=== PATIENT | male | born 1995 | race Two or more races ===

== ENCOUNTER 2016-09-05 14:15 | Emergency (ER) | payer OTHER ==
[2016-09-05 14:32] VITALS: BP 132/76
--- NOTE | 2016-09-06 07:00 | ER ---
DATE SEEN: 09/05/2016 TIME SEEN: The patient was seen at 1430 hours. CHIEF COMPLAINT: Right testicle lump that is painful. HISTORY OF PRESENT ILLNESS: This 21-year-old single fellow comes in with history of onset yesterday, 09/04, of severe right testicle lump pain. He woke with pain that was worse this morning. It got progressively worse. PAST MEDICAL HISTORY:He has significant depression. No diabetes, heart disease , high blood pressure, or serious illness. ALLERGIES: No allergies. MEDICATIONS: No medications currently. PAST SURGICAL HISTORY: None. FAMILY HISTORY: Unknown. He does not want talk about his mother and father. They are and he has not seen either for some time. SOCIAL HISTORY: The patient is a nonsmoker. Works at [employer] and has been off for a week because he has been so tired. REVIEW OF SYSTEMS: Negative, except for he has been depressed and he is chronically depressed. He has euthymia throughout the year. He has difficulty sleeping. He says he feels helpless and hopeless. Does not feel guilty. He has decreased energy. Concentration is okay. He has anxiety and appetite is good. Psychomotor behavior not decreased or increased and he is not suicidal. Remainder of review of systems is negative. PHYSICAL EXAMINATION: VITAL SIGNS: Blood pressure 132/76, heart rate 79, respirations 18, oxygen saturation 100%, temperature 37.3 degrees centigrade. GENERAL: The patient is a tall lanky . HEENT: PERRLA intact. Pharynx without abnormality. NECK: No cervical adenopathy. No thyromegaly or masses in the neck. LUNGS: Clear to auscultation without rales, rhonchi, or wheezes. HEART: S1, S2. No irregular rate and rhythm. No murmur. ABDOMEN: Soft, minimal suprapubic discomfort. No guarding or rebound. No distention. : Rectal exam, not performed. Examination of right testicle is slightly larger than the left. There is minimal discomfort in the testis, but there is an inferior anterior excrescence (epididymis) that is tender, and with gentle rolling of that under my finger caused him increased pain. The vas is nontender. He is circumcised and bilaterally descended testicles. Inguinal area is nontender and just minimal discomfort to right testicle. ASSESSMENT: 1. Right epididymitis. 2. Trace orchitis. 3. Doubt torsed testicle. I discussed the patient's status, and he did not want any studies done nor did he even want to get a urine. After I had placed order he came to the desk and said he wanted to leave. "I need to just go home and get some sleep." At this point, I have encouraged him to at least start an antibiotic to decrease his pain and treet a possible epididymitis. I did not prescribe pain medicine, as he did not want any pain medicine prescribed. PLAN: Use Cipro 500 mg b.i.d. 20 tablets,F/U in 7-10 days, earlier if worse. If he has fever, marked pain in the scrotum and the testicle, see a doctor earlier. DIAGNOSES: 1. Epididymitis. 2. Depression without suicidality. He has chronic long-term depression with dysthymia, has been having difficulty sleeping for the last 2 days, and he relates he is not going to work for the past week at [employer] due to his depression and tiredness. I encouraged him to see a doctor and follow up and have treatment for his depression. At this point, he is somewhat in denial and would prefer to simply just get his medicine antibiotic, and go home and sleep. /[id number] LETHA/MICHAEL COWAN
== END 2016-09-05 15:33 | disposition home or self-care (01) ==
LOC: FB.ED 14:15
DX: N45.3 Epididymo-orchitis (principal); F32.9 Major depressive disorder, single episode, unspecified
CPT/HCPCS: 99281

== ENCOUNTER 2016-09-15 14:12 | Emergency (ER) | payer OTHER ==
[2016-09-15] MEDS ORDERED: Ondansetron 4 MG/2 ML SDV IVPUSH ONE (14:31)
[2016-09-15] MEDS ORDERED: Sodium Chloride 0.9% 1,000 ML IV ONE ×2 (14:31→15:44)
--- NOTE | 2016-09-15 15:05 | EDM.PDOC ---
ED HPI ENT - General Chief Complaint: Fever Stated Complaint: SORE THROAT FEVER Time Seen by Provider: 09/15/16 14:17 Source: Reports: Patient, Family History Limitations: Reports: Intoxication - History of Present Illness INITIAL COMMENTS - FREE TEXT/NARRATIVE: 21 years old w m -smoker-came to the ed due to N/V, dizzy, lightheaded and sore throat. Pt was seen a few days ago in this ed when he waked out refusing a drug screen. Pt denies trauma. He smokes marijuana, however. Symptom Onset Date: 09/12/16 Symptom Onset Time: 09:00 Timing/Duration: Reports: Day(s): Severity: moderate Quality: Reports: Burning Improves with: Reports: None Worsens with: Reports: Eating Associated symptoms: Reports: weakness, cough, malaise - Related Data Allergies/ADRs: Allergies Allergy/AdvReac Type Severity Reaction Status Date / Time No Known Allergies Allergy Verified 09/15/16 14:24 Home Meds: Home Meds Ciprofloxacin HCl [Cipro] 500 mg PO BID #20 tablet 09/05/16 [Rx] Amoxicillin [IJD: Amoxicillin] 500 mg PO .THREE TIMES DAILY #30 cap 09/15/16 [Rx ] Famotidine [Pepcid] 20 mg PO BID #20 tablet 09/15/16 [Rx] Past Medical History Respiratory History: Reports: Asthma Musculoskeletal History: Reports: Fracture Other Musculoskeletal History: L elbow fx, R ankle fx Psychiatric History: Reports: Anxiety - Past Surgical History Musculoskeletal Surgical History: Reports: Other (see below) Other Musculoskeletal Surgeries/Procedures:: L elbow fx repair, R ankle repair Social & Family History - Tobacco Use Smoking Status *Q: Current Every Day Smoker Years of Tobacco use: 2 Packs/Tins Daily: 0.2 - Caffeine Use Caffeine Use: Reports: None - Recreational Drug Use Recreational Drug Use: Yes Drug Use in Last 12 Months: Yes Recreational Drug Type: Reports: Marijuana/Hashish Recreational Drug Use Frequency: Daily Recreational Drug Last Use: 09/15/16 ED ROS ENT - Review of Systems Review Of Systems: See Below Constitutional: Reports: no symptoms, weakness, fatigue HEENT: Reports: Throat pain Respiratory: Reports: Cough, Sputum Cardiovascular: Reports: No symptoms Endocrine: Reports: no symptoms GI/Abdominal: Reports: No symptoms : Reports: no symptoms Musculoskeletal: Reports: muscle pain Skin: Reports: no symptoms Neurological: Reports: No Symptoms Psychiatric: Reports: Anxiety Hematologic/Lymphatic: Reports: no symptoms Immunologic: Reports: no symptoms ED EXAM, ENT - Physical Exam Exam: See Below Exam Limited By: Other (appears high on drugs, weak.) General Appearance: alert, WD/WN, anxious, mild distress Eye Exam: bilateral eye: normal inspection Ears: normal external exam, normal canal, hearing grossly normal Nose: normal inspection, normal mucousa, no blood Mouth/Throat: Dry mucous membrane, Gum swelling, Pharyngeal erythema, Tonsillar erythema, Tonsillar exudates Head: atraumatic, normocephalic Neck: normal inspection, supple, non-tender Respiratory/Chest: no respiratory distress, rhonchi Cardiovascular: normal peripheral pulses, regular rate, rhythm, no edema GI/Abdominal: tender (RUQ) (Male) Exam: No hernia, Normal inspection Rectal (Males) Exam: Deferred Back: normal inspection, full range of motion Extremities: normal inspection, normal range of motion, non-tender, no pedal edema Neurological: alert, oriented, CN II-XII intact, normal cognition Psychiatric: anxious Skin: Warm, Dry, Intact, Normal color Lymphatic: no adenopathy Course - Vital Signs Text/Narrative:: 21 years old w m came to the ed due to N/V, dizzy, lightheaded and sore throat. Pt was seen a few days ago in this ed when he waked out refusing a drug screen. Pt denies trauma. He smokes marijuana, however. PE: Well nourished black male. Epigastric tenderness, Pharyngeal erythema, dry mucosal membrane. decr. skin turgor Labs: Na 129, UDS pos for Amphetamine and Marijuana, WBC 24K (poss from vomiting , drugs) Impression: Hyponatremia, UDS pos, Dehydration, gastritis, pharyngitis. Bronchitis Tx: NS, pepcid, Zofran, reexam: Improved Plan: D/C with instructions Last Recorded V/S: Last Vital Signs Temp 39.2 C H 09/15/16 15:14 Pulse 119 H 09/15/16 14:17 Resp 16 09/15/16 14:17 BP 122/78 09/15/16 15:14 Pulse Ox 97 09/15/16 14:17 - Orders/Labs/Meds Orders: Active Orders 24 hr Category Date Time Status Sodium Chloride 0.9% [Normal Saline] 1,000 ml Med 09/15/16 15:44 Active IV .BOLUS Medication Orders Sodium Chloride (Normal Saline) 1,000 mls @ 999 drops/hr IV .BOLUS ONE Stop: 09/16/16 06:44 Last Admin: 09/15/16 15:48 Dose: 999 drops/hr Labs: Laboratory Tests 09/15/16 09/15/16 09/15/16 Range/Units 14:45 14:45 14:45 WBC 24.0 H (4.5-12.0) X10-3/uL RBC 5.07 (4.30-5.75) x10(6)uL Hgb 15.3 (11.5-15.5) g/dL Hct 44.2 (30.0-51.3) % MCV 87.2 (80-96) fL MCH 30.2 (27.7-33.6) pg MCHC 34.7 (32.2-35.4) g/dL RDW 11.5 (11.5-15.5) % Plt Count 240 (125-369) X10(3)uL MPV 7.5 (7.4-10.4) fL Add Manual Diff Yes Neutrophils % (Manual) 96 H (46-82) % Band Neutrophils % 1 (0-6) % Lymphocytes % (Manual) 2 L (13-37) % Monocytes % (Manual) 1 L (4-12) % PT 12.6 H (8.7-11.1) INR 1.24 H (0.89-1.13) Sodium 129 L (135-145) mmol/L Potassium 3.8 (3.5-5.3) mmol/L Chloride 97 L (100-110) mmol/L Carbon Dioxide 26 (23-29) mmol/L BUN 13 (5-20) mg/dL Creatinine 0.9 (0.6-1.3) mg/dL Est Cr Clr Drug Dosing 152.22 mL/min Estimated GFR (MDRD) > 60 (>60) BUN/Creatinine Ratio 14.4 (9-20) Glucose 116 (80-116) mg/dL Lactic Acid (0.5-2.2) mmol/L Calcium 9.1 (8.6-10.2) mg/dL Total Bilirubin 1.3 (0.1-1.3) mg/dL Direct Bilirubin 0.2 (0.1-0.2) mg/dL AST 25 (5-27) IU/L ALT 55 H (14-26) IU/L Alkaline Phosphatase 53 L (56-112) IU/L Total Protein 7.9 (6.0-8.0) g/dL Albumin 4.2 (3.5-5.2) g/dL Amylase (28-100) U/L Urine Color (YELLOW) Urine Appearance (CLEAR) Urine pH (5.0-6.5) Ur Specific [place] (1.010-1.025) Urine Protein (NEGATIVE) mg/dL Urine Glucose (UA) (NEGATIVE) mg/dL Urine Ketones (NEGATIVE) mg/dL Urine Occult Blood (NEGATIVE) Urine Nitrite (NEGATIVE) Urine Bilirubin (NEGATIVE) Urine Urobilinogen (NEGATIVE) mg/dL Ur Leukocyte Esterase (NEGATIVE) Urine RBC (0) Urine WBC (0) Ur Squamous Epith Cells (NS,R,O) Urine Bacteria (NS) Urine Mucus (NS) Urine Opiates Screen (NEGATIVE) Ur Oxycodone Screen (NEGATIVE) Ur Propoxyphene Screen (NEGATIVE) Ur Barbituates Screen (NEGATIVE) Ur Tricyclics Screen (NEGATIVE) Ur Phencyclidine Scrn (NEGATIVE) Ur Amphetamine Screen (NEGATIVE) Urine MDMA Screen (NEGATIVE) U Benzodiazepines Scrn (NEGATIVE) U Cocaine Metab Screen (NEGATIVE) U Marijuana (THC) Screen (NEGATIVE) Ethyl Alcohol (<0.01) % 09/15/16 09/15/16 09/15/16 Range/Units 14:45 14:45 14:45 WBC (4.5-12.0) X10-3/uL RBC (4.30-5.75) x10(6)uL Hgb (11.5-15.5) g/dL Hct (30.0-51.3) % MCV (80-96) fL MCH (27.7-33.6) pg MCHC (32.2-35.4) g/dL RDW (11.5-15.5) % Plt Count (125-369) X10(3)uL MPV (7.4-10.4) fL Add Manual Diff Neutrophils % (Manual) (46-82) % Band Neutrophils % (0-6) % Lymphocytes % (Manual) (13-37) % Monocytes % (Manual) (4-12) % PT (8.7-11.1) INR (0.89-1.13) Sodium (135-145) mmol/L Potassium (3.5-5.3) mmol/L Chloride (100-110) mmol/L Carbon Dioxide (23-29) mmol/L BUN (5-20) mg/dL Creatinine (0.6-1.3) mg/dL Est Cr Clr Drug Dosing mL/min Estimated GFR (MDRD) (>60) BUN/Creatinine Ratio (9-20) Glucose (80-116) mg/dL Lactic Acid 1.1 (0.5-2.2) mmol/L Calcium (8.6-10.2) mg/dL Total Bilirubin (0.1-1.3) mg/dL Direct Bilirubin (0.1-0.2) mg/dL AST (5-27) IU/L ALT (14-26) IU/L Alkaline Phosphatase (56-112) IU/L Total Protein (6.0-8.0) g/dL Albumin (3.5-5.2) g/dL Amylase 39 (28-100) U/L Urine Color (YELLOW) Urine Appearance (CLEAR) Urine pH (5.0-6.5) Ur Specific [place] (1.010-1.025) Urine Protein (NEGATIVE) mg/dL Urine Glucose (UA) (NEGATIVE) mg/dL Urine Ketones (NEGATIVE) mg/dL Urine Occult Blood (NEGATIVE) Urine Nitrite (NEGATIVE) Urine Bilirubin (NEGATIVE) Urine Urobilinogen (NEGATIVE) mg/dL Ur Leukocyte Esterase (NEGATIVE) Urine RBC (0) Urine WBC (0) Ur Squamous Epith Cells (NS,R,O) Urine Bacteria (NS) Urine Mucus (NS) Urine Opiates Screen (NEGATIVE) Ur Oxycodone Screen (NEGATIVE) Ur Propoxyphene Screen (NEGATIVE) Ur Barbituates Screen (NEGATIVE) Ur Tricyclics Screen (NEGATIVE) Ur Phencyclidine Scrn (NEGATIVE) Ur Amphetamine Screen (NEGATIVE) Urine MDMA Screen (NEGATIVE) U Benzodiazepines Scrn (NEGATIVE) U Cocaine Metab Screen (NEGATIVE) U Marijuana (THC) Screen (NEGATIVE) Ethyl Alcohol < 0.01 (<0.01) % 09/15/16 09/15/16 Range/Units 16:23 16:23 WBC (4.5-12.0) X10-3/uL RBC (4.30-5.75) x10(6)uL Hgb (11.5-15.5) g/dL Hct (30.0-51.3) % MCV (80-96) fL MCH (27.7-33.6) pg MCHC (32.2-35.4) g/dL RDW (11.5-15.5) % Plt Count (125-369) X10(3)uL MPV (7.4-10.4) fL Add Manual Diff Neutrophils % (Manual) (46-82) % Band Neutrophils % (0-6) % Lymphocytes % (Manual) (13-37) % Monocytes % (Manual) (4-12) % PT (8.7-11.1) INR (0.89-1.13) Sodium (135-145) mmol/L Potassium (3.5-5.3) mmol/L Chloride (100-110) mmol/L Carbon Dioxide (23-29) mmol/L BUN (5-20) mg/dL Creatinine (0.6-1.3) mg/dL Est Cr Clr Drug Dosing mL/min Estimated GFR (MDRD) (>60) BUN/Creatinine Ratio (9-20) Glucose (80-116) mg/dL Lactic Acid (0.5-2.2) mmol/L Calcium (8.6-10.2) mg/dL Total Bilirubin (0.1-1.3) mg/dL Direct Bilirubin (0.1-0.2) mg/dL AST (5-27) IU/L ALT (14-26) IU/L Alkaline Phosphatase (56-112) IU/L Total Protein (6.0-8.0) g/dL Albumin (3.5-5.2) g/dL Amylase (28-100) U/L Urine Color Yellow (YELLOW) Urine Appearance Slightly cloudy (CLEAR) Urine pH 6.0 (5.0-6.5) Ur Specific [place] 1.015 (1.010-1.025) Urine Protein Negative (NEGATIVE) mg/dL Urine Glucose (UA) Normal (NEGATIVE) mg/dL Urine Ketones 50 H (NEGATIVE) mg/dL Urine Occult Blood Negative (NEGATIVE) Urine Nitrite Negative (NEGATIVE) Urine Bilirubin Small H (NEGATIVE) Urine Urobilinogen 4 H (NEGATIVE) mg/dL Ur Leukocyte Esterase Negative (NEGATIVE) Urine RBC 0-5 (0) Urine WBC 0-5 (0) Ur Squamous Epith Cells Few H (NS,R,O) Urine Bacteria Few H (NS) Urine Mucus Few H (NS) Urine Opiates Screen Negative (NEGATIVE) Ur Oxycodone Screen Negative (NEGATIVE) Ur Propoxyphene Screen Negative (NEGATIVE) Ur Barbituates Screen Negative (NEGATIVE) Ur Tricyclics Screen Negative (NEGATIVE) Ur Phencyclidine Scrn Negative (NEGATIVE) Ur Amphetamine Screen Positive H (NEGATIVE) Urine MDMA Screen Negative (NEGATIVE) U Benzodiazepines Scrn Negative (NEGATIVE) U Cocaine Metab Screen Negative (NEGATIVE) U Marijuana (THC) Screen Positive H (NEGATIVE) Ethyl Alcohol (<0.01) % Meds: Medications Generic Name Dose Route Start Last Admin Trade Name Freq PRN Reason Stop Dose Admin Sodium Chloride 1,000 mls @ 999 drops/hr 09/15/16 15:44 09/15/16 15:48 Normal Saline IV 09/16/16 06:44 999 drops/hr .BOLUS ONE Administration Discontinued Medications Generic Name Dose Route Start Last Admin Trade Name Freq PRN Reason Stop Dose Admin Amoxicillin 500 mg 09/15/16 15:24 09/15/16 15:37 Amoxil PO 09/15/16 15:25 500 mg ONETIME ONE Administration Famotidine 20 mg 09/15/16 16:24 09/15/16 16:30 Pepcid PO 09/15/16 16:25 20 mg ONETIME ONE Administration Sodium Chloride 1,000 mls @ 999 mls/hr 09/15/16 14:31 09/15/16 14:41 Normal Saline IV 09/15/16 15:31 999 mls/hr .BOLUS ONE Administration Ondansetron HCl 8 mg 09/15/16 14:31 09/15/16 14:47 Zofran IVPUSH 09/15/16 14:32 8 mg ONETIME ONE Administration Departure - Departure Time of Disposition: 16:52 Disposition: Home, Self-Care 01 Condition: good Clinical Impression: Dehydration, Strep pharyngitis, Hyponatremia, Drug abuse, amphetamine type Gastritis Qualifiers: Gastritis type: superficial Chronicity: unspecified Gastritis bleeding: without bleeding Qualified Code(s): K29.30 - Chronic superficial gastritis without bleeding Prescriptions: Amoxicillin [IJD: Amoxicillin] 500 mg PO .THREE TIMES DAILY #30 cap Famotidine [Pepcid] 20 mg PO BID #20 tablet Referrals: PCP,None [Primary Care Provider] - Forms: ED Department Discharge Additional Instructions: Pleae take the meds as recommended, please increase water intake, NO DRUGS PLEASE. Please follow up, come back to the ed if symptoms get worse acutely. - My Orders Last 24 Hours: My Active Orders 09/15/16 15:44 Sodium Chloride 0.9% [Normal Saline] 1,000 ml IV .BOLUS - Assessment/Plan Last 24 Hours: My Active Orders 09/15/16 15:44 Sodium Chloride 0.9% [Normal Saline] 1,000 ml IV .BOLUS
[2016-09-15] MEDS ORDERED: Amoxicillin 500 MG Cap PO ONE (15:24)
[2016-09-15] MEDS ORDERED: Famotidine 20 MG Tab PO ONE (16:24)
[2016-09-15 16:59] VITALS: BP 121/78
== END 2016-09-15 16:58 | disposition home or self-care (01) ==
LOC: FB.ED 14:12
DX: E86.0 Dehydration (principal); J02.0 Streptococcal pharyngitis; E87.1 Hypo-osmolality and hyponatremia; F15.10 Other stimulant abuse, uncomplicated; K29.30 Chronic superficial gastritis without bleeding; J40 Bronchitis, not specified as acute or chronic; F17.200 Nicotine dependence, unspecified, uncomplicated; F12.90 Cannabis use, unspecified, uncomplicated
CPT/HCPCS: 36415; 80048; 80076; 80305; 81001; 82150; 83605; 85025; 85610; 87430; 96361; 96374; 99282; A9270; G0480; J2405; J7040

== ENCOUNTER 2017-04-20 22:21 | Emergency (ER) | payer OTHER ==
[2017-04-20 22:28] VITALS: BP 151/84
[2017-04-20] MEDS ORDERED: Naproxen 250 MG Tab PO ONE (22:32)
[2017-04-20] MEDS ORDERED: Cyclobenzaprine 10 MG Tab PO ONE (22:32)
[2017-04-20] MEDS ORDERED: Ketorolac 60 MG/2 ML SDV IM ONE (22:33)
--- NOTE | 2017-04-20 23:51 | ER ---
DATE SEEN: 04/20/2017 CHIEF COMPLAINT: Back pain. HISTORY OF PRESENT ILLNESS: This is a 22-year-old male, who was coughing earlier today, felt a pop in the left side of his back in the middle. Sharp pain that makes it difficult for him to take deep breaths or bend or move. He tried ibuprofen at home with no relief. PAST MEDICAL HISTORY: Drug abuse amphetamine type, dehydration, hyponatremia, and strep throat. ALLERGIES: None. MEDICATIONS: Reviewed, none. PHYSICAL EXAMINATION: GENERAL: Nontoxic. VITAL SIGNS: Blood pressure is 151/84 and pulse is 108. BACK: Lower back, there is tenderness in the paraspinal muscle group on the lumbar and thoracic spine on the left side. He is in a wheelchair. He had normal strength in the lower extremities. MENTAL STATUS: Alert. LABORATORY DATA: None. IMPRESSION: Thoracic back sprain. PLAN: Ketorolac 60 mg IM. We will send him home on naproxen and Flexeril. TIME SEEN: 2230 hours. /[id number] ROSEMARY/NATEL
== END 2017-04-20 22:50 | disposition home or self-care (01) ==
LOC: FB.ED 22:21
DX: S23.3XXA Sprain of ligaments of thoracic spine, initial encounter (principal); X58.XXXA Exposure to other specified factors, initial encounter
CPT/HCPCS: 96372; 99283; J1885; A9270-GY

== ENCOUNTER 2017-07-08 04:57 | Emergency (ER) | payer OTHER ==
[2017-07-08] MEDS ORDERED: Diphtheria,Pertussis(Acell),Tetanus Vaccine 0.5 ML SDV IM ONE (06:06)
[2017-07-08 06:15] LABS: ACETAMINOPHEN < 2 ug/mL (10-30)
--- NOTE | 2017-07-08 09:02 | EDM.PDOC ---
ED HPI GENERAL MEDICAL PROBLEM - General Chief Complaint: ENT Problem Stated Complaint: EAR LAC Time Seen by Provider: 07/08/17 09:00 Source of Information: Reports: Patient History Limitations: Reports: No Limitations - History of Present Illness INITIAL COMMENTS - FREE TEXT/NARRATIVE: 22 yo male initially seen and evaluated by Dr. Hollis. Comes to the ER early this morning with a report of methamphetamine use, recent homelessness, and a request for hospitalization. Onset: Today Duration: Hour(s): Location: Reports: Head (L ear laceration) Quality: Reports: Burning Severity: Mild Improves with: Reports: None Worsens with: Reports: None Context: Reports: Other (unsure he states) Associated Symptoms: Reports: No Other Symptoms Treatments [employer]: Reports: Other (see below) (none) Right Ear Pain Score (Numeric/FACES): 5 - Related Data Allergies Allergy/AdvReac Type Severity Reaction Status Date / Time No Known Allergies Allergy Verified 07/08/17 05:08 Home Meds: Home Meds NK [No Known Home Meds] 04/20/17 [History] Past Medical History - Past Health History Medical/Surgical History: Denies Medical/Surgical History Respiratory History: Reports: Asthma Musculoskeletal History: Reports: Fracture Other Musculoskeletal History: L elbow fx, R ankle fx Psychiatric History: Reports: Anxiety - Past Surgical History Musculoskeletal Surgical History: Reports: Other (See Below) Social & Family History - Tobacco Use Smoking Status *Q: Current Every Day Smoker Years of Tobacco use: 10 Packs/Tins Daily: 1 - Caffeine Use Caffeine Use: Reports: Coffee - Recreational Drug Use Recreational Drug Use: Yes Drug Use in Last 12 Months: Yes Recreational Drug Type: Reports: Methamphetamine Recreational Drug Use Frequency: Daily Recreational Drug Last Use: 09/15/16 ED ROS GENERAL - Review of Systems Review Of Systems: See Below Constitutional: Reports: No Symptoms HEENT: Reports: No Symptoms Respiratory: Reports: No Symptoms Cardiovascular: Reports: No Symptoms Endocrine: Reports: No Symptoms GI/Abdominal: Reports: No Symptoms : Reports: No Symptoms Musculoskeletal: Reports: No Symptoms Skin: Reports: Other (L auricle pain) Neurological: Reports: No Symptoms Psychiatric: Reports: No Symptoms Hematologic/Lymphatic: Reports: No Symptoms Immunologic: Reports: No Symptoms ED EXAM, GENERAL - Physical Exam Exam: Not Obtained Free Text/Narrative:: See Dr. Sonstegard's dictation. Course - Vital Signs Last Recorded V/S: Last Vital Signs Temp 36.9 C 07/08/17 05:09 Pulse 107 H 07/08/17 05:09 Resp 18 07/08/17 05:09 BP 165/91 H 07/08/17 05:09 Pulse Ox 100 07/08/17 05:09 - Orders/Labs/Meds Orders: Active Orders 24 hr Category Date Time Status Vaccines to be Administered [RC] PER UNIT ROUTINE Care 07/08/17 06:07 Active Labs: Laboratory Tests 07/08/17 07/08/17 07/08/17 Range/Units 05:50 05:50 05:50 WBC 11.7 (4.5-12.0) X10-3/uL RBC 5.20 (4.30-5.75) x10(6)uL Hgb 15.8 H (11.5-15.5) g/dL Hct 45.7 (30.0-51.3) % MCV 88.0 (80-96) fL MCH 30.3 (27.7-33.6) pg MCHC 34.5 (32.2-35.4) g/dL RDW 12.0 (11.5-15.5) % Plt Count 363 (125-369) X10(3)uL MPV 7.4 (7.4-10.4) fL Add Manual Diff Yes Neutrophils % (Manual) 74 (46-82) % Band Neutrophils % 1 (0-6) % Lymphocytes % (Manual) 20 (13-37) % Monocytes % (Manual) 4 (4-12) % Eosinophils % (Manual) 1 (0-5) % Sodium 138 (135-145) mmol/L Potassium 3.6 (3.5-5.3) mmol/L Chloride 100 (100-110) mmol/L Carbon Dioxide 26 (21-32) mmol/L BUN 13 (7-18) mg/dL Creatinine 0.9 (0.70-1.30) mg/dL Est Cr Clr Drug Dosing 146.73 mL/min Estimated GFR (MDRD) > 60 (>60) BUN/Creatinine Ratio 14.4 (9-20) Glucose 92 (80-116) mg/dL Calcium 9.8 (8.6-10.2) mg/dL Total Bilirubin 1.1 (0.1-1.3) mg/dL AST 29 H (5-25) IU/L ALT 36 (12-36) U/L Alkaline Phosphatase 64 (56-112) IU/L Total Protein 8.3 H (6.0-8.0) g/dL Albumin 4.2 (3.5-5.2) g/dL Globulin 4.1 g/dL Albumin/Globulin Ratio 1.0 Salicylates 1.1 L (2.8-20.0) mg/dL Urine Opiates Screen (NEGATIVE) Ur Oxycodone Screen (NEGATIVE) Ur Propoxyphene Screen (NEGATIVE) Acetaminophen < 2 L (10-30) ug/mL Ur Barbituates Screen (NEGATIVE) Ur Tricyclics Screen (NEGATIVE) Ur Phencyclidine Scrn (NEGATIVE) Ur Amphetamine Screen (NEGATIVE) Urine MDMA Screen (NEGATIVE) U Benzodiazepines Scrn (NEGATIVE) U Cocaine Metab Screen (NEGATIVE) U Marijuana (THC) Screen (NEGATIVE) Ethyl Alcohol < 0.03 (<0.03) % 07/08/17 Range/Units 12:20 WBC (4.5-12.0) X10-3/uL RBC (4.30-5.75) x10(6)uL Hgb (11.5-15.5) g/dL Hct (30.0-51.3) % MCV (80-96) fL MCH (27.7-33.6) pg MCHC (32.2-35.4) g/dL RDW (11.5-15.5) % Plt Count (125-369) X10(3)uL MPV (7.4-10.4) fL Add Manual Diff Neutrophils % (Manual) (46-82) % Band Neutrophils % (0-6) % Lymphocytes % (Manual) (13-37) % Monocytes % (Manual) (4-12) % Eosinophils % (Manual) (0-5) % Sodium (135-145) mmol/L Potassium (3.5-5.3) mmol/L Chloride (100-110) mmol/L Carbon Dioxide (21-32) mmol/L BUN (7-18) mg/dL Creatinine (0.70-1.30) mg/dL Est Cr Clr Drug Dosing mL/min Estimated GFR (MDRD) (>60) BUN/Creatinine Ratio (9-20) Glucose (80-116) mg/dL Calcium (8.6-10.2) mg/dL Total Bilirubin (0.1-1.3) mg/dL AST (5-25) IU/L ALT (12-36) U/L Alkaline Phosphatase (56-112) IU/L Total Protein (6.0-8.0) g/dL Albumin (3.5-5.2) g/dL Globulin g/dL Albumin/Globulin Ratio Salicylates (2.8-20.0) mg/dL Urine Opiates Screen Negative (NEGATIVE) Ur Oxycodone Screen Negative (NEGATIVE) Ur Propoxyphene Screen Negative (NEGATIVE) Acetaminophen (10-30) ug/mL Ur Barbituates Screen Negative (NEGATIVE) Ur Tricyclics Screen Negative (NEGATIVE) Ur Phencyclidine Scrn Negative (NEGATIVE) Ur Amphetamine Screen Positive H (NEGATIVE) Urine MDMA Screen Positive H (NEGATIVE) U Benzodiazepines Scrn Negative (NEGATIVE) U Cocaine Metab Screen Negative (NEGATIVE) U Marijuana (THC) Screen Positive H (NEGATIVE) Ethyl Alcohol (<0.03) % Meds: Medications Discontinued Medications Generic Name Dose Route Start Last Admin Trade Name Freq PRN Reason Stop Dose Admin Diphtheria/Tetanus/Acell Pertussis 0.5 ml 07/08/17 06:06 07/08/17 06:11 Adacel IM 07/08/17 06:07 0.5 ml .ONCE ONE Administration Departure - Departure Time of Disposition: 13:37 Disposition: Home, Self-Care 01 Condition: Good Clinical Impression: Illicit drug use - Discharge Information Referrals: Malcolm Dodson MD [Primary Care Provider] - Forms: ED Department Discharge
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
[2017-07-08 21:09] VITALS: BP 123/83
--- NOTE | 2017-07-11 12:37 | ER ---
DATE SEEN: 07/08/2017 ADDENDUM: The patient decided he did not want to stay and eloped. /[id number] LETHA/MICHAEL
== END 2017-07-08 15:00 | disposition home or self-care (01) ==
LOC: FB.ED 04:57
DX: S01.312A Laceration without foreign body of left ear, initial encounter (principal); S01.311A Laceration without foreign body of right ear, initial encounter; F19.10 Other psychoactive substance abuse, uncomplicated; R41.0 Disorientation, unspecified; F43.20 Adjustment disorder, unspecified; Y04.0XXA Assault by unarmed brawl or fight, initial encounter
CPT/HCPCS: 36415; 80053; 80305; 85025; 90471; 90715; 99285; G0480